=== PATIENT | female | born 1980 | race African-American/Black ===

== ENCOUNTER 2020-04-05 17:54 | Emergency (ER) | payer SELFPAY ==
[2020-04-05] MEDS ORDERED: MECLIZINE HCL 25 MG TABLET PO ONE (18:25)
[2020-04-05] MEDS ORDERED: NORMAL SALINE 1000 ML 1,000 ML IV ONE (18:25)
--- NOTE | 2020-04-05 18:26 | ER Document Report ---
ED Medical Screen (RME) - General Chief Complaint: Vertigo Stated Complaint: DIZZINESS Time Seen by Provider: 04/05/20 18:20 Primary Care Provider: QUINN,NO [Primary Care Provider] - Follow up as needed Notes: HPI: 39-year-old female presenting for evaluation of vertigo symptoms today. Has 8 or 9-year history of vertigo from [place] does not a local provider here is out of her meclizine. States when she stands up the whole room spins and she throws up. No chest pain no shortness of breath. Symptoms are typical of vertigo symptoms she has had in the past states that she was not really worked up for vertigo with imaging studies they just treated it while she was in [place]. PHYSICAL EXAMINATION: Patient with increased nausea with movement of the head. Lung sounds are clear to auscultation regular rate and rhythm. Strength equal 5/5 bilateral upper and lower extremities. Spoke with Dr. Ty about work-up I have greeted and performed a rapid initial assessment of this patient. A com prehensive ED assessment and evaluation of the patient, analysis of test results and completion of medical decision making process will be conducted by an additional ED providers. Please note that clinical decision making for this patient was made during the 2019 pandemic of novel coronavirus which caused a significant strain on the healthcare system including at this particular facility. Criteria for admission discharge and level of care decisions as well as treatment decisions have necessarily changed - Related Data Allergies/Adverse Reactions: No Known Allergies Allergy (Verified 04/05/20 17:58) Past Medical History - Social History Chew tobacco use (# tins/day): No Frequency of alcohol use: None Drug Abuse: None - Immunizations Hx Diphtheria, Pertussis, Tetanus Vaccination: Yes Physical Exam - Vital signs Vitals: Temp Pulse Resp BP Pulse Ox 98.2 F 99 16 133/89 H 99 04/05/20 17:57 04/05/20 17:57 04/05/20 17:57 04/05/20 17:57 04/05/20 17:57 Course - Vital Signs Vital signs: Temp Pulse Resp BP Pulse Ox 98.2 F 99 16 133/89 H 99 04/05/20 17:57 04/05/20 17:57 04/05/20 17:57 04/05/20 17:57 04/05/20 17:57 Doctor's Discharge - Discharge Referrals: QUINN,NO [Primary Care Provider] - Follow up as needed
--- NOTE | 2020-04-05 19:58 | EKG REPORT ---
SEVERITY:- BORDERLINE ECG - SINUS RHYTHM PROBABLE LEFT ATRIAL ABNORMALITY : Confirmed by: Bashir Horowitz MD 05-Apr-2020 19:57:18
[2020-04-05 20:12] LABS: ABSOLUTE MONOCYTES (AUTO) 0.4 10^3/uL (0.1-1.4); BASOPHILS % (AUTO) 0.2 % (0-2); HEMOGLOBIN 13.7 g/dL (12.0-15.5); LYMPHOCYTES % (AUTO) 8.8 % (13-45); MEAN CORPUSCULAR HEMOGLOBIN 26.7 pg (27.0-33.4); MEAN CORPUSCULAR HGB CONC 31.9 g/dL (32.0-36.0); MEAN CORPUSCULAR VOLUME 84 fl (80-97); MONOCYTES % (AUTO) 3.3 % (3-13); PLATELET COUNT 239 10^3/uL (150-450); RED BLOOD COUNT 5.14 10^6/uL (3.72-5.28); RED CELL DISTRIBUTION WIDTH 14.4 % (11.5-14.0); SEGMENTED NEUTROPHILS % (AUTO) 87.7 % (42-78); TOTAL CELLS COUNTED % (AUTO) 100 %; WHITE BLOOD COUNT 11.4 10^3/uL (4.0-10.5)
[2020-04-05 20:20] LABS: INTERNATIONAL RATION (INR) 1.02; PROTHROMBIN TIME 13.6 SEC (11.4-15.4)
--- NOTE | 2020-04-05 20:28 | RADIOLOGY REPORT (SQ) ---
EXAM: CT HEAD WITHOUT CLINICAL INDICATION: 39-year-old female with vertigo. COMPARISON: None. TECHNIQUE: CT brain without contrast. This exam was performed according to our departmental dose optimization program which includes use of automated exposure control, adjustment of the mA and/or kV according to patient size and/or use of iterative reconstruction technique. FINDINGS: Motion limited examination. Overall, there is diffuse paucity of the cerebral sulci with slightly prominent appearance of the cortex, a finding which may be within normal limits for the patient, however can also be seen in the setting of diffuse cerebral edema. Please correlate with patient clinical findings. The dickson-white matter differentiation is otherwise preserved. There is no mass effect, midline shift, intra- or extra-axial fluid collection/acute hemorrhage. The osseous structures are unremarkable. The paranasal sinuses and mastoid air cells are clear. IMPRESSION: 1. No acute intracranial hemorrhage, cortical or territorial infarction. 2. Overall, there is diffuse paucity of the cerebral sulci with slightly prominent appearance of the cortex, a finding which may be within normal limits for the patient, however can also be seen in the setting of diffuse cerebral edema. Please correlate with patient clinical findings and consider follow-up evaluation with MRI.
[2020-04-05 20:29] LABS: ALBUMIN 4.6 g/dL (3.5-5.0); ALKALINE PHOSPHATASE 81 U/L (38-126); ANION GAP 12 (5-19); ASPARTATE AMINO TRANSFERASE 20 U/L (14-36); BILIRUBIN,DIRECT 0.1 mg/dL (0.0-0.4); BILIRUBIN,TOTAL 0.5 mg/dL (0.2-1.3); BLOOD UREA NITROGEN 11 mg/dL (7-20); CALCIUM 9.8 mg/dL (8.4-10.2); CARBON DIOXIDE 25 mmol/L (22-30); CHLORIDE 103 mmol/L (98-107); GLUCOSE 131 mg/dL (75-110); POTASSIUM 4.5 mmol/L (3.6-5.0); TOTAL PROTEIN 8.1 g/dL (6.3-8.2)
[2020-04-05] MEDS ORDERED: ONDANSETRON 4 MG TAB.RAPDIS PO ONE (20:36)
--- NOTE | 2020-04-05 20:46 | ER Document Report ---
ED Dizziness/Weakness - General Chief Complaint: Vertigo Stated Complaint: DIZZINESS Time Seen by Provider: 04/05/20 18:20 Primary Care Provider: LAURENCE BALL [NO ALPHONSO MD] - Follow up as needed JENNIFER FARIA DO [NO ALPHONSO MD] - Follow up as needed Mode of Arrival: Ambulatory Information source: Patient Notes: 39-year-old female presents to the emergency room with a past medical history significant for vertigo and scoliosis complaining of dizziness that started arou nd 1:30 this morning. Patient has a history of vertigo currently does not have any meclizine which she only takes with good relief of her symptoms. Denies any head trauma head injury. Complains of nausea but no vomiting. No COVID-19 exposure. States she feels like the room is spinning. Symptoms worsen with movement of her head. Tried taking Dramamine without relief. TRAVEL OUTSIDE OF THE [place] IN LAST 30 DAYS: No - Related Data Allergies/Adverse Reactions: No Known Allergies Allergy (Verified 04/05/20 17:58) Past Medical History - General Information source: Patient - Social History Smoking Status: Never Smoker Chew tobacco use (# tins/day): No Frequency of alcohol use: None Drug Abuse: None Family History: Reviewed & Not Pertinent - Immunizations Hx Diphtheria, Pertussis, Tetanus Vaccination: Yes Review of Systems - Review of Systems Constitutional: No symptoms reported EENT: No symptoms reported Cardiovascular: Dizziness Respiratory: No symptoms reported Gastrointestinal: Nausea. denies: Vomiting Musculoskeletal: No symptoms reported Skin: No symptoms reported Neurological/Psychological: No symptoms reported -: Yes All other systems reviewed and negative Physical Exam - Vital signs Vitals: Temp Pulse Resp BP Pulse Ox 98.2 F 99 16 133/89 H 99 04/05/20 17:57 04/05/20 17:57 04/05/20 17:57 04/05/20 17:57 04/05/20 17:57 - General General appearance: Appears well, Alert In distress: Mild - HEENT Head: Normocephalic, Atraumatic Eyes: Normal Conjunctiva: Normal Cornea: Normal Extraocular movements intact: Yes Pupils: PERRL Pharynx: Normal Neck: Normal Notes: Positive for bilateral photophobia, positive nystagmus to the left - Respiratory Respiratory status: No respiratory distress Chest status: Nontender Breath sounds: Normal Chest palpation: Normal - Cardiovascular Rhythm: Regular Heart sounds: Normal auscultation Murmur: No - Neurological Neuro grossly intact: Yes Cognition: Normal Orientation: AAOx4 [place] Coma Scale Eye Opening: Spontaneous [place] Coma Scale Verbal: Oriented [place] Coma Scale Motor: Obeys Commands [place] Coma Scale Total: 15 Speech: Normal Motor strength normal: LUE, RUE, LLE, RLE Sensory: Normal Notes: Dizziness worsens when moving head side to side. - Skin Skin Temperature: Warm Skin Moisture: Dry Skin Color: Normal Course - Re-evaluation Re-evalutation: 04/05/20 20:45 Reviewed lab and CAT scan results with the patient. Patient has never had a CT or MRI in the past. She is aware of the need for an MRI. Patient is agreeable to additional testing. Planing of nausea Zofran is ordered. 04/05/20 21:15 04/05/20 22:47 Reviewed negative MRI results with patient. States she is feeling better but s till complaining of some dizziness. Is asking for another dose of meclizine. Counseled patient that meclizine is given every 8 hours and it has been 3 hours since her first dose. We will give IV Valium and reevaluate. 04/05/20 23:21 Patient is resting comfortably symptoms has resolved. She is currently asymptomatic. Patient will be discharged home on meclizine and Zofran. Outpatient follow-up with a primary care physician if not improving in 2 to 3 days. On-call physician will be provided. Patient was given strict return to the emergency room guidelines. Return for any new or worsening symptoms. All questions were answered. Patient verbalized understanding and agrees with plan of care. - Vital Signs Vital signs: Temp Pulse Resp BP Pulse Ox 98.5 F 85 16 122/70 100 04/06/20 00:17 04/06/20 00:17 04/06/20 00:17 04/06/20 00:17 04/06/20 00:17 - Laboratory Results Result Diagrams: 04/05/20 19:30 04/05/20 19:30 Laboratory Results Interpreted: 04/05/20 04/05/20 19:30 19:30 WBC 11.4 H MCH 26.7 L MCHC 31.9 L RDW 14.4 H Lymph % (Auto) 8.8 L Absolute Neuts (auto) 10.0 H Seg Neutrophils % 87.7 H Glucose 131 H Critical Laboratory Results Reviewed: No Critical Results - Radiology Results Radiology Results Interpreted: 04/06/20 01:[address] 04/05/20 18:24 IMPRESSION: 1. No acute intracranial hemorrhage, cortical or territorial infarction. 2. Overall, there is diffuse paucity of the cerebral sulci with slightly prominent appearance of the cortex, a finding which may be within normal limits for the patient, however can also be seen in the setting of diffuse cerebral edema. Please correlate with patient clinical findings and consider follow-up evaluation with MRI. Head MRI 04/05/20 20:45 IMPRESSION: Negative for acute findings on the noncontrast MRI of the brain. Critical Radiology Results Reviewed: Yes Attending or Supervising Physician who Reviewed Radiology: MONICA LOOMIS JR - Question of cerebral edema - EKG Interpretation by Nd EKG shows normal: Sinus rhythm Rate: Normal Additional EKG results interpreted by me: 04/05/20 21:14 EKG was interpreted by ER physician Dr. Ty No acute STEMI Normal sinus rhythm Rate of 93 Probable left atrial abnormality No ST wave abnormality No previous EKG for comparison Discharge - Discharge Clinical Impression: Dizziness, Vertigo Condition: Stable Disposition: HOME, SELF-CARE Instructions: Dizziness ([facility]), Vertigo ([facility]) Additional Instructions: Take meclizine and Zofran as prescribed. Outpatient follow-up with a primary care physician if not improving in 2 to 3 days. Return to emergency room for any new or worsening symptoms. Prescriptions: Meclizine HCl [Antivert 25 mg Tablet] 25 mg PO TID PRN #21 tablet PRN Reason: Ondansetron [Zofran Odt 4 mg Tablet] 1 tab PO Q4H PRN #15 tab.rapdis PRN Reason: For Nausea/Vomiting Referrals: LAURENCE BALL [NO LOCAL MD] - Follow up as needed JENNIFER FARIA DO [NO LOCAL MD] - Follow up as needed
--- NOTE | 2020-04-05 22:28 | RADIOLOGY REPORT (SQ) ---
EXAM DESCRIPTION: MRI BRAIN WITHOUT INTRAVENOUS CONTRAST CLINICAL HISTORY: Headache, dizziness, vertigo COMPARISON: CT head performed the same day. TECHNIQUE: MRI of the brain was performed without intravenous contrast, in a multiplanar/multisequence format. FINDINGS: There is no intracranial hemorrhage, midline shift, mass effect or acute focal infarct. There is a good dickson/white matter differentiation. Normal flow voids are seen in the intracranial arterial circulation. There is no visualization of a demyelination process. The ventricular system is normal. Limited evaluation of the pituitary fossa, bilateral cerebellopontine angles and bilateral IAC region appear unremarkable. IMPRESSION: Negative for acute findings on the noncontrast MRI of the brain.
[2020-04-05] MEDS ORDERED: DIAZEPAM INJ 10 MG/2 ML DISP.SYRIN IV ONE (22:48)
[2020-04-06 00:59] VITALS: BP 122/70
== END 2020-04-06 00:59 | disposition home or self-care (01) ==
LOC: ER 17:54
DX: R42 Dizziness and giddiness (principal); R11.0 Nausea; H53.143 Visual discomfort, bilateral; H55.00 Unspecified nystagmus
CPT/HCPCS: 93005; 99285; 96361; 96374; 36415; 84703; 85025; 85610; 80053; 84484; 70551; 70450; 93010; J3360; S0119; J7030